=== PATIENT | female | born 1990 | race Caucasian/White ===

== ENCOUNTER 2018-12-01 07:42 | Emergency (ER) | payer OTHER ==
[2018-12-01] MEDS: ACETAMINOPHEN 325 MG TAB PO (09:00)
[2018-12-01] MEDS: IBUPROFEN 200 MG TAB PO (09:00)
== END 2018-12-01 10:00 | disposition home or self-care (01) ==
LOC: FTE 07:42
DX: S02.2XXA Fracture of nasal bones, initial encounter for closed fracture (principal); W01.190A Fall on same level from slipping, tripping and stumbling with subsequent striking against furniture, initial encounter; Y92.9 Unspecified place or not applicable
CPT/HCPCS: 70486; 81025; 99284-25